=== PATIENT | female | born 1925 | race Caucasian/White ===

== ENCOUNTER 2016-07-07 | Outpatient (CLI) | payer MEDICARE, OTHER | END 2016-07-07 05:06 | disposition critical access hospital (66) | DX: R07.9 Chest pain, unspecified (principal) | CPT/HCPCS: A0425; A0427 ==

== ENCOUNTER 2016-07-07 | Outpatient (CLI) | payer MEDICARE, OTHER | END 2016-07-07 10:38 | disposition short-term general hospital (02) | DX: R07.9 Chest pain, unspecified (principal) | CPT/HCPCS: A0425; A0428 ==

== ENCOUNTER 2016-07-07 05:23 | Emergency (ER) | payer MEDICARE, OTHER | END 2016-07-07 10:40 | disposition short-term general hospital (02) | DX: I21.4 Non-ST elevation (NSTEMI) myocardial infarction (principal); I10 Essential (primary) hypertension; E78.00 Pure hypercholesterolemia, unspecified; Z86.73 Personal history of transient ischemic attack (TIA), and cerebral infarction without residual deficits ==